=== PATIENT | male | born 1980 | race African-American/Black ===

== ENCOUNTER 2018-01-27 22:34 | Emergency (ER) | payer MEDICAID, OTHER ==
[~2018-01-27] VITALS: Ht 172.7 cm; Wt 105.0 kg
[~2018-01-27 22:34] MED LIST: CIPR500T4 PO
[2018-01-27 22:57] VITALS: BP 128/76; PULSE 88; RESP 18; TEMP 98.5; O2SAT 98
[2018-01-27] MEDS ORDERED: ZOFR8TAB PO (23:24)
[2018-01-27] MEDS ORDERED: LEVS0.124 SL (23:24)
[2018-01-27] MEDS ORDERED: HYOSCYAMINE 0.125 MG TAB PO ONE (23:30)
[2018-01-27] MEDS ORDERED: ONDANSETRON ODT 4 MG TAB PO ONE (23:30)
--- NOTE | 2018-01-27 23:30 | PD ---
HPI Chief Complaint: GI Complaint Time Seen by Provider: 23:03 Travel History International Travel<30 days: No Contact w/Intl Traveler<30days: No Traveled to known affect area: No History of Present Illness HPI 37-year-old male presents emergency department with complaints of nausea, vomiting, diarrhea. Patient states that his child came home from daycare earlier this week with similar symptoms. He has been sick now for the last 24 hours. Patient admits to persistent symptoms. He has had no fever chills. No abdominal pain no dysuria or frequency. Symptoms are moderate. Exacerbated by food. No alleviating factor. PFSH Past Medical History Narrative Medical Mandible fracture, borderline cholesterol Diminished Hearing: No Tetanus Vaccination: < 5 Years Influenza Vaccination: No Past Surgical History Narrative Surgical ORIF mandible fracture Social History Alcohol Use: No (NEVER) Tobacco Use: Yes (6-10 PER DAY) Substance Use: No Allergies-Medications (Allergen,Severity, Reaction): Coded Allergies: ciprofloxacin (Verified Allergy, Severe, 01/27/18) hives Reported Meds & Prescriptions Reported Meds & Active Scripts Active Levsin-SL (Hyoscyamine Sulfate) 0.125 Mg Subl 0.25 Mg SL Q6H Zofran (Ondansetron HCl) 8 Mg Tab 8 Mg PO TID Cipro (Ciprofloxacin HCl) 500 Mg Tab 500 Mg PO BID 7 Days Review of Systems Except as stated in HPI: all other systems reviewed are Neg Physical Exam Narrative GENERAL: Well-developed, well-nourished in no acute distress. Nontoxic appearing. HEAD: Normocephalic, atraumatic. EYES: Pupils equal round and reactive. Extraocular motions intact. No scleral icterus. No injection or drainage. ENT: TMs clear without erythema. The external auditory canals clear. Nose: clear . Posterior pharynx is pink and moist. No tonsillar edema or exudate. Uvula midline. Airway patent. NECK: Trachea midline.Supple, nontender, moves head freely. No central bony tenderness or spasm. CARDIOVASCULAR: Regular rate and rhythm without murmurs, gallops, or rubs. RESPIRATORY: Clear to auscultation. Breath sounds equal bilaterally. No wheezes , rales, or rhonchi. GASTROINTESTINAL: Abdomen soft, non-tender, nondistended. No hepato-splenomegaly , or palpable masses. No guarding. EXTREMITIES: No clubbing, cyanosis, or edema. No joint tenderness, effusion, or edema noted. BACK: Nontender without deformity or crepitance. No flank tenderness. Data Data Last Documented VS Vital Signs Date Time Temp Pulse Resp B/P (MAP) Pulse Ox O2 Delivery O2 Flow Rate FiO2 01/27/18 22:57 98.5 88 18 128/76 (93) 98 Orders Orders Ondansetron Odt (Zofran Odt) (01/27/18 23:30) Hyoscyamine (Levsin) (01/27/18 23:30) Oral Rehydration (01/27/18 23:21) MDM Medical Decision Making Medical Screen Exam Complete: Yes Emergency Medical Condition: Yes Medical Record Reviewed: Yes Differential Diagnosis Differential diagnosis: Nausea, vomiting, diarrhea, abdominal pain, gastroenteritis, UTI, appendicitis Narrative Course Patient's exam is reassuring. Is unremarkable at this time. Patient was given Zofran 4 mg p.o. went to Levsin 0.125 p.o. Patient is given a fluid challenge which he has passed. This is vomiting, diarrhea Diagnosis Primary Impression: Vomiting Additional Impression: Diarrhea Patient Instructions: General Instructions Departure Forms: Tests/Procedures, Work Release Special Instructions: No work 2 days. Additional Instructions: Rest. Increase fluids. Medications as directed. Follow-up with a medical doctor in next 2-3 days for recheck. Return to ER if any problems. Med/Other Pt SpecificInfo: Prescription(s) given Scripts Hyoscyamine Odt (Levsin-SL) 0.125 Mg Subl 0.25 MG SL Q6H for Gastrointestinal disorders, #12 TAB.SL 0 Refills Prov: Britt Meléndez MD 01/27/18 Ondansetron (Zofran) 8 Mg Tab 8 MG PO TID for Nausea/Vomiting, #6 TAB 0 Refills Prov: Britt Meléndez MD 01/27/18 Disposition: 01 DISCHARGE HOME Condition: Stable Pavel Maldonado Jan 27, 2018 23:30
== END 2018-01-28 00:31 | disposition home or self-care (01) ==
LOC: NEPD 22:34
DX: R11.2 Nausea with vomiting, unspecified (principal); R19.7 Diarrhea, unspecified; F17.200 Nicotine dependence, unspecified, uncomplicated
CPT/HCPCS: 99283